=== PATIENT | male | born 1985 | race Hispanic/Latino ===

== ENCOUNTER 2017-06-29 15:33 | Emergency (ER) | payer SELFPAY ==
[~2017-06-29] VITALS: Ht 163.1 cm; Wt 80.0 kg
[~2017-06-29 15:33] MED LIST: DOXYCYC MONO100 M3 PO
[2017-06-29 16:33] LABS: HEMATOCRIT 42.7 % (39.0-50.0); HEMOGLOBIN 14.5 g/dl (14.0-18.0); IMMATURE GRANULOCYTES 0.3 % (0.0-1.0); MEAN CELL VOLUME 90.9 fL CALC (80.0-100.0); MEAN CORPUSCULAR HGB 30.9 pG CALC (26.0-32.0); NEUT# 4.2 thou/uL (1.82-7.42); RED BLOOD COUNT 4.7 mill/uL (4.70-6.10)
[2017-06-29 16:46] LABS: URINE BILIRUBIN - DIPSTICK NEGATIVE (NEGATIVE); URINE BLOOD DIPSTICK NEGATIVE (NEGATIVE); URINE CLARITY SL CLOUDY; URINE COLOR YELLOW; URINE GLUCOSE - DIPSTICK NEGATIVE (NEGATIVE); URINE KETONE NEGATIVE (NEGATIVE); URINE LEUK ESTERASE NEGATIVE (NEGATIVE); URINE NITRITE - DIPSTICK NEGATIVE (Negative); URINE PROTEIN - DIPSTICK NEGATIVE (NEG-TRACE); URINE UROBILINOGEN - DIPSTICK 0.2 E.U./dL (0.2)
[2017-06-29 16:49] LABS: ALBUMIN 4.6 g/dL (3.2-5.0); ALKALINE PHOSPHATASE 59 u/l (38-126); ANION GAP 17 (6-22 (CALC)); BILIRUBIN, TOTAL 0.6 mg/dL (0.0-1.4); BUN 17 mg/dL (9-20); BUN/CREATININE RATIO 21 (12-20 (CALC)); CALCIUM 9.4 mg/dL (8.4-10.2); CARBON DIOXIDE 27 mmol/l (22-30); CHLORIDE 105 mmol/l (95-108); CREATININE 0.8 mg/dL (0.7-1.3); GFR > 60 ML/MIN (>=60 (CALC)); GFR FOR AFR.AMER. > 60 ML/MIN (>=60 (CALC)); GLUCOSE 109 mg/dL (75-110); POTASSIUM 3.8 mmol/l (3.5-5.1); SGOT/AST 55 u/l (17-59); SGPT/ALT 135 u/l (21-72); SODIUM 145 mmol/l (137-146); TOTAL PROTEIN 7.8 g/dL (6.3-8.2)
[2017-06-29] MEDS ORDERED: MEDDOSEPAK PO (17:35)
[2017-06-29] MEDS ORDERED: FAMVIR500 MG PO (17:35)
[2017-06-29 17:50] VITALS: BP 123/85
== END 2017-06-29 17:50 | disposition home or self-care (01) | DRG 74 ==
LOC: ED 15:33
PROVIDERS: Emergency Medicine
DX: G51.0 Bell's palsy (principal); R20.2 Paresthesia of skin